=== PATIENT | male | born 1985 | race Caucasian/White ===

== ENCOUNTER 2017-07-31 15:09 | Inpatient (IN) | payer MEDICARE, MEDICAID ==
[~2017-07-31] VITALS: Ht 180.3 cm; Wt 109.2 kg
[~2017-07-31 15:09] MED LIST: ACET325T14
[2017-07-31] MEDS ORDERED: ONDANSETRON 2MG/ML, 2ML IVPush ONE (15:30)
[2017-07-31] MEDS ORDERED: SODIUM CHLORIDE FLUSH 10ML SYR IVF ONE (15:30)
[2017-07-31] MEDS ORDERED: SODIUM CHLORIDE 0.9% 1,000ML IVBOLUS ONE ×2 (15:30→16:00)
[2017-07-31 16:26] LABS: HEMATOCRIT 47.6 % (39.2-51.8); HEMOGLOBIN 16.1 g/dL (13.7-18.0); WHITE BLOOD COUNT 11.9 x10^3/uL (3.4-10)
[2017-07-31] MEDS ORDERED: FLUCONAZOLE 200 MG TABLET PO STA (16:35)
[2017-07-31 16:41] LABS: BLOOD UREA NITROGEN 6 mg/dL (7-18)
[2017-07-31] MEDS ORDERED: HYDROmorphone 1 MG/ML, 1ML ONE ×2 (16:56→19:01)
[2017-07-31] MEDS ORDERED: CLINDAMYCIN PMX 600MG/50ML 50 ML IV ONE (17:00)
[2017-07-31] MEDS: HYDROmorphone 1 MG/ML, 1ML IVPush PRN ×2 (17:05→19:10)
[2017-07-31] MEDS ORDERED: CLINDAMYCIN PMX 600MG/50ML 50 ML ONE (17:10)
[2017-07-31] MEDS ORDERED: OMNIPAQUE 350 MG/ML, 100ML BOTTLE ONE (18:35)
[2017-07-31] MEDS ORDERED: SODIUM CHLORIDE 0.9% 1,000 ML IV ONE (19:52)
[2017-07-31] MEDS ORDERED: ONDANSETRON 2MG/ML, 2ML IVPush PRN ×2 (20:00→21:30)
[2017-07-31] MEDS ORDERED: NYSTATIN CRM 15GM TP SCH (21:00)
[2017-07-31] MEDS ORDERED: POTASSIUM CHLORIDE 20 MEQ, MAGNESIUM SULFATE 2 GM, THIAMINE 100 MG, MVI ADULT 10 ML, FO... IV SCH (21:09)
[2017-07-31] MEDS ORDERED: NICOTINE 21 MG/24 HR PATCH.TD24 TD ONE (23:00)
[2017-07-31] MEDS: ENOXAPARIN 40 MG/0.4 ML SQ SCH (23:12)
[2017-07-31] MEDS: LORazepam 1MG TABLET PO PRN (23:12)
[2017-07-31] MEDS: HYDROmorphone 2 MG/ML, 1ML IVPush PRN (23:12)
[2017-07-31 23:40] VITALS: BP 133/80
[2017-08-01] MEDS: NYSTATIN TOPICAL POWDER 15GM TP SCH ×5 (00:16→21:55)
[2017-08-01] MEDS ORDERED: HYDROmorphone 1 MG/ML, 1ML ONE ×6 (01:15→18:41)
[2017-08-01] MEDS: TRAZODONE 50MG TABLET PO PRN ×2 (01:21→21:56)
[2017-08-01] MEDS: SODIUM CHLORIDE 0.9% 1,000 ML IV SCH ×4 (01:21→21:40)
[2017-08-01] MEDS: HYDROmorphone 2 MG/ML, 1ML IVPush PRN ×7 (01:21→21:56)
[2017-08-01] MEDS: CLINDAMYCIN PMX 300MG/50ML 50 ML IV SCH ×3 (01:21→17:09)
[2017-08-01 01:33] VITALS: BP 131/73
[2017-08-01 08:25] VITALS: BP 123/73
[2017-08-01] MEDS: LORazepam 1MG TABLET PO PRN ×2 (08:51→17:15)
[2017-08-01 09:41] LABS: HEMATOCRIT 38.7 % (39.2-51.8); HEMOGLOBIN 13.1 g/dL (13.7-18.0); WHITE BLOOD COUNT 7.2 x10^3/uL (3.4-10)
[2017-08-01 10:05] LABS: BLOOD UREA NITROGEN 9 mg/dL (7-18)
[2017-08-01] MEDS: OXYcodone IR 5MG TABLET PO PRN ×2 (13:52→20:32)
[2017-08-01 16:16] VITALS: BP 132/83
[2017-08-01 18:32] VITALS: BP 145/83
[2017-08-01] MEDS ORDERED: FOLIC ACID 1 MG TABLET PO ONE (21:00)
[2017-08-01] MEDS ORDERED: POTASSIUM CHLORIDE 20 MEQ, MAGNESIUM SULFATE 2 GM, THIAMINE 100 MG, MVI ADULT 10 ML in ... IV SCH (21:09)
[2017-08-01] MEDS: ENOXAPARIN 40 MG/0.4 ML SQ SCH (21:56)
[2017-08-02 00:34] VITALS: BP 136/87
[2017-08-02] MEDS ORDERED: HYDROmorphone 1 MG/ML, 1ML ONE ×3 (01:00→07:55)
[2017-08-02] MEDS: HYDROmorphone 2 MG/ML, 1ML IVPush PRN ×3 (01:04→07:58)
[2017-08-02] MEDS: CLINDAMYCIN PMX 300MG/50ML 50 ML IV SCH ×3 (01:04→17:15)
[2017-08-02 05:07] LABS: HEMATOCRIT 36.9 % (39.2-51.8); HEMOGLOBIN 12.5 g/dL (13.7-18.0); WHITE BLOOD COUNT 6.5 x10^3/uL (3.4-10)
[2017-08-02 05:34] LABS: ASPARTATE AMINO TRANSFERASE 19 U/L (15-37); BLOOD UREA NITROGEN 8 mg/dL (7-18)
[2017-08-02] MEDS: NYSTATIN TOPICAL POWDER 15GM TP SCH ×4 (05:36→20:43)
[2017-08-02 07:15] VITALS: BP 133/90
[2017-08-02] MEDS: OXYcodone IR 5MG TABLET PO PRN ×4 (07:58→20:42)
[2017-08-02] MEDS: SODIUM CHLORIDE 0.9% 1,000 ML IV SCH ×2 (08:46→20:43)
[2017-08-02] MEDS ORDERED: POLYETHYLENE GLYCOL 17 GM PACKET PO PRN (10:30)
[2017-08-02] MEDS ORDERED: BISACODYL 10 MG SUPP PR PRN (10:30)
[2017-08-02] MEDS ORDERED: HYDROmorphone 2 MG/ML, 1ML IVPush PRN (12:30)
[2017-08-02 14:15] VITALS: BP 147/87
[2017-08-02 20:20] VITALS: BP 132/88
[2017-08-02] MEDS: TRAZODONE 50MG TABLET PO PRN (20:42)
[2017-08-02] MEDS: ENOXAPARIN 40 MG/0.4 ML SQ SCH (20:42)
[2017-08-03] MEDS: CLINDAMYCIN PMX 300MG/50ML 50 ML IV SCH ×3 (01:04→17:22)
[2017-08-03] MEDS: OXYcodone IR 5MG TABLET PO PRN ×5 (01:07→20:41)
[2017-08-03 01:46] VITALS: BP 138/74
[2017-08-03] MEDS: NYSTATIN TOPICAL POWDER 15GM TP SCH ×4 (06:29→20:41)
[2017-08-03] MEDS: SODIUM CHLORIDE 0.9% 1,000 ML IV SCH ×2 (06:29→17:09)
[2017-08-03 06:55] VITALS: BP 134/88
[2017-08-03] MEDS: DOCUSATE 100 MG CAPSULE PO SCH (09:03)
[2017-08-03 13:10] VITALS: BP 157/94
[2017-08-03] MEDS: NICOTINE 21 MG/24 HR PATCH.TD24 TD SCH (17:23)
[2017-08-03 18:45] VITALS: BP 123/85
[2017-08-03] MEDS: ENOXAPARIN 40 MG/0.4 ML SQ SCH (20:41)
[2017-08-03] MEDS: TRAZODONE 50MG TABLET PO PRN (23:26)
[2017-08-04 01:01] VITALS: BP 157/94
[2017-08-04] MEDS: OXYcodone IR 5MG TABLET PO PRN ×6 (01:23→22:01)
[2017-08-04] MEDS: CLINDAMYCIN PMX 300MG/50ML 50 ML IV SCH ×3 (01:24→16:52)
[2017-08-04] MEDS: SODIUM CHLORIDE 0.9% 1,000 ML IV SCH ×2 (05:23→16:45)
[2017-08-04] MEDS: NYSTATIN TOPICAL POWDER 15GM TP SCH ×4 (05:23→22:33)
[2017-08-04 07:10] VITALS: BP 128/85
[2017-08-04] MEDS: NICOTINE 21 MG/24 HR PATCH.TD24 TD SCH (09:00)
[2017-08-04] MEDS: DOCUSATE 100 MG CAPSULE PO SCH (09:32)
[2017-08-04 12:14] VITALS: BP 131/84
[2017-08-04] MEDS: LORazepam 1MG TABLET PO PRN (16:50)
[2017-08-04 20:00] VITALS: BP 131/84
[2017-08-04] MEDS: ENOXAPARIN 40 MG/0.4 ML SQ SCH (22:33)
[2017-08-04] MEDS: TRAZODONE 50MG TABLET PO PRN (22:33)
[2017-08-05] MEDS: CLINDAMYCIN PMX 300MG/50ML 50 ML IV SCH ×2 (00:54→08:50)
[2017-08-05 02:00] VITALS: BP 138/77
[2017-08-05] MEDS: OXYcodone IR 5MG TABLET PO PRN ×5 (02:49→20:26)
[2017-08-05] MEDS: SODIUM CHLORIDE 0.9% 1,000 ML IV SCH (02:50)
[2017-08-05] MEDS: NYSTATIN TOPICAL POWDER 15GM TP SCH ×4 (06:27→20:26)
[2017-08-05 08:00] VITALS: BP 105/70
[2017-08-05] MEDS: NICOTINE 21 MG/24 HR PATCH.TD24 TD SCH (08:50)
[2017-08-05] MEDS: DOCUSATE 100 MG CAPSULE PO SCH (08:50)
[2017-08-05] MEDS: LORazepam 1MG TABLET PO PRN ×2 (08:50→15:33)
[2017-08-05] MEDS: CEPHALEXIN 500 MG CAPSULE PO SCH ×3 (09:00→20:26)
[2017-08-05 14:00] VITALS: BP 119/71
[2017-08-05] MEDS: THIAMINE 100MG TABLET PO SCH (17:31)
[2017-08-05] MEDS: MULTIVITAMIN 1 TABLET PO SCH (17:31)
[2017-08-05] MEDS: FOLIC ACID 1 MG TABLET PO SCH (18:35)
[2017-08-05 19:30] VITALS: BP 124/76
[2017-08-05] MEDS: ENOXAPARIN 40 MG/0.4 ML SQ SCH (20:26)
[2017-08-05] MEDS: TRAZODONE 50MG TABLET PO PRN (20:26)
[2017-08-06] MEDS: OXYcodone IR 5MG TABLET PO PRN ×4 (01:19→14:40)
[2017-08-06 01:28] VITALS: BP 131/65
[2017-08-06] MEDS: NYSTATIN TOPICAL POWDER 15GM TP SCH ×4 (05:24→16:00)
[2017-08-06] MEDS: MULTIVITAMIN 1 TABLET PO SCH (08:18)
[2017-08-06] MEDS: THIAMINE 100MG TABLET PO SCH (08:18)
[2017-08-06] MEDS: CEPHALEXIN 500 MG CAPSULE PO SCH ×2 (08:18→16:42)
[2017-08-06] MEDS: FOLIC ACID 1 MG TABLET PO SCH (08:18)
[2017-08-06] MEDS: DOCUSATE 100 MG CAPSULE PO SCH (08:18)
[2017-08-06] MEDS: NICOTINE 21 MG/24 HR PATCH.TD24 TD SCH (08:20)
[2017-08-06 08:27] VITALS: BP 120/76
[2017-08-06] MEDS ORDERED: FOLI-17 PO (12:13)
[2017-08-06] MEDS ORDERED: MULT1TAB60 PO (12:13)
[2017-08-06] MEDS ORDERED: THIA100T6 PO (12:13)
[2017-08-06] MEDS ORDERED: CEPH-376 PO (12:13)
[2017-08-06] MEDS ORDERED: NYST60PO TP (12:13)
[2017-08-06] MEDS ORDERED: OXYC5TAB3 PO (12:14)
[2017-08-06 14:25] VITALS: BP 127/81
== END 2017-08-06 17:23 | disposition home or self-care (01) | DRG 872 ==
LOC: ED 18:10 → EDIP 19:52 → 4WST 22:42 → DCLOUNGE 08-06 16:50
PROVIDERS: ADMIT Hospitalist; ATTEND Hospitalist
DX: A41.9 Sepsis, unspecified organism (principal); E87.2 Acidosis; E44.0 Moderate protein-calorie malnutrition; L03.315 Cellulitis of perineum; B37.9 Candidiasis, unspecified; K61.1 Rectal abscess; L03.112 Cellulitis of left axilla; L03.317 Cellulitis of buttock; D53.9 Nutritional anemia, unspecified; I10 Essential (primary) hypertension; E66.9 Obesity, unspecified; F43.10 Post-traumatic stress disorder, unspecified; Z59.0 Homelessness; Z87.891 Personal history of nicotine dependence
CPT/HCPCS: 36415; 72193; 76870; 80048; 80053; 80076; 82040; 83605; 83735; 84100; 84145; 85025; 87040; 96365; 96366; 96375; J1170; J1650; J3411; J3475; J3480; J7042; Q9967; J7030

== ENCOUNTER → 2017-09-11 | Outpatient (CLI) | payer MEDICARE, MEDICAID ==
[~2017-09-11] MED LIST changes: +CEPH-376 PO; +FOLI-17 PO; +MULT1TAB60 PO; +NYST60PO TP; +OXYC5TAB3 PO; +THIA100T6 PO
== END | disposition home or self-care (01) ==
LOC: WOUND 09:59
PROVIDERS: ATTEND Family Medicine
DX: L03.111 Cellulitis of right axilla (principal); L03.112 Cellulitis of left axilla; L03.314 Cellulitis of groin; B35.4 Tinea corporis; L40.8 Other psoriasis; F41.9 Anxiety disorder, unspecified; I10 Essential (primary) hypertension; E66.9 Obesity, unspecified; I25.2 Old myocardial infarction; F17.210 Nicotine dependence, cigarettes, uncomplicated; Z72.89 Other problems related to lifestyle
CPT/HCPCS: G0463; WOU0463